=== PATIENT | female | born 1975 | race American Indian/Alaskan Native ===

== ENCOUNTER 2018-09-09 09:22 | Outpatient (CLI) | payer OTHER ==
--- NOTE | 2018-09-09 13:08 | Ultrasound Report ---
LEFT BREAST ULTRASOUND: 09/09/18 09:22:00 CLINICAL: The patient presented for an ultrasound guided biopsy of a mass described to be at 11 o'clock 8 cm from the nipple. This was identified on a 05/02/18 ultrasound. COMPARISON: 05/02/18 FINDINGS: Ultrasound of the left breast (including all four quadrants and the retroareolar area) was performed and demonstrated no solid mass or shadowing. At 11 o'clock 8 cm from the nipple, normal fat lobules which correlate with what was described as a mass on the previous exam. This an oval smooth benign cyst at 2 o'clock 5 cm from the nipple measures 1.1 x 0.7 x 1.1 cm. A benign cyst at 2:30 o'clock 4 cm from the nipple measures 5 x 9 x 4 mm. A benign cyst at 6 o'clock 4 cm from the nipple measures 4 mm. A few additional scattered subcentimeter cysts. I discussed the findings with the patient and she described breast pain as her primary concern. I reassured her and suggested that she see a breast specialist (surgeon) for evaluation of breast pain. IMPRESSION: No solid mass to biopsy at 11 o'clock 8 cm from the nipple. Multiple benign cysts. BI-RADS 2 - - Benign RECOMMENDATION: Routine mammographic screening and consultation with a breast specialist regarding pain.
== END 2018-09-09 09:23 | disposition home or self-care (01) ==
LOC: SPVWC 09:22
PROVIDERS: ATTEND Internal Medicine
DX: N60.02 Solitary cyst of left breast (principal)